=== PATIENT | female | born 1955 | race Caucasian/White ===

== ENCOUNTER 2024-11-25 14:27 | Outpatient (AMB) | payer MEDICARE, SELFPAY ==
--- NOTE | 2024-11-25 14:42 | A.OFFVIS_ITS ---
Vital Signs 11/25/24 14:44 Height 4 ft 11 in Weight 238 lb 1.588 oz BMI 48.1 BP 178/80 H Blood Pressure Location Lt brachial Position Sitting Pulse 50 Pulse Source Pulse Oximeter Pulse Oximetry (%) 99 Oxygen Delivery Method Room Air Intake Visit Reasons: copd Allergies No Known Allergies Allergy (Verified 11/25/24 14:47) HPI Comments Details: The patient is here for pulmonary evaluation. The patient is a 69 year woman who is here for evaluation of ongoing respiratory complaints. The patient states that she was in her usual state health until several years ago when she started developing worsening cough wheezing. She was evaluated by Pulmonary that time. Part of the workup including a CT scan of the chest. She had multiple CT scans demonstrating stable pulmonary nodules. We did personally review her last CT scan from 08/22/2020 4 which is done at [facility]. It actually demonstrated stable pulmonary nodules with the largest nodule irregular in appearance measuring 5 mm in size in the right upper lobe. In addition to that the patient had a dilated pulmonary trunk suggesting pulmonary hypertension and also a dilated ectatic ascending aorta. The patient does have daytime drowsiness he also has lower extremity edema. She was recommended to have a sleep study but she did not want to do that. Currently she is not using any inhalers. She has not any recent pulmonary function studies. On further examination the patient does have a systolic ejection murmur and a pronounced S2 suggesting the possibility of pulmonary hypertension. The patient also has significant lower extremity edema. Will plan to request an echocardiogram to assess for pulmonary hypertension. Also request an overnight oximetry to assess her oxygen levels at nighttime. Will have her get pulmonary function studies and her return for further evaluation. For now she is going to maintain a low- sodium diet. [facility] Medical History (Updated 11/25/24 @ 22:21 by Turner Banuelos MD) Dyspnea Ectatic aorta Murmur Pulmonary hypertension Pulmonary nodules Social History (Updated 11/25/24 @ 14:47 by Laura Georges CMA) Patient Tobacco Use Status: Former Tobacco user Review of Systems Const Reports daytime sleepiness and Reports fatigue ENT Reports no additional complaints Card Denies chest pain, Reports leg edema and Reports dyspnea on exertion Resp Reports dyspnea on exertion and Denies wheezing GI Reports no additional complaints Musc Reports no additional complaints Skin/Breast Denies rash Endo Reports fatigue Luis/Lymph Reports no additional complaints Aller/Immun Denies wheezing Physical Exam Vital Signs: Last Vital Signs Pulse 50 11/25/24 14:44 BP 178/80 H 11/25/24 14:44 Pulse Ox 99 11/25/24 14:44 Oxygen Delivery Method Room Air 11/25/24 14:44 BMI result Body Mass Index 48.1 Const General: comfortable HEENT Head: Yes normocephalic Neck Neck: Yes supple Chest Chest palpation & inspection: normal inspection of the chest Resp Effort & Inspection: normal respiratory effort Auscultation: diminished lung sounds Cardio Heart sounds: S1 normal heart sound present, S2 normal heart sound present, Murmur heart sound present systolic and Abnormal heart opening sounds loud S2 GI Palpation (GI): Soft to palpation Skin General skin exam: no rashes or lesions noted Extrem General: No clubbing, No cyanosis and Yes edema Results Reviewed Results Reviewed: personally reviewed CT chest 08/2024, RUL 5mm nodule, Pulm HTN, ectatic aorta Assessment & Plan Assessment & Plan (1) Pulmonary nodules: Code(s): R91.8 - Other nonspecific abnormal finding of lung field Category: Medical (2) Pulmonary hypertension: Code(s): I27.20 - Pulmonary hypertension, unspecified Category: Medical (3) Murmur: Code(s): R01.1 - Cardiac murmur, unspecified Category: Medical (4) Ectatic aorta: Code(s): I77.819 - Aortic ectasia, unspecified site Category: Medical (5) Dyspnea: Code(s): R06.00 - Dyspnea, unspecified Category: Medical Qualifiers: Dyspnea type: dyspnea on exertion Qualified Code(s): R06.09 - Other forms of dyspnea Plan PFTs Overnight oximetry on RA ECHO Low Na diet F/U 2 months Orders: Orders Overnight Pulse Oximetry Today I27.20 - Pulmonary hypertension, unspecified, R0 1.1 - Cardiac murmur, unspecified, R91.8 - Other nonspecific abnormal finding of lung field CA echo transthoracic complete Today I27.20 - Pulmonary hypertension, unspecified, R01.1 - Cardiac murmur, unspecified, R91.8 - Other nonspecific abnormal finding of lung field PFT pulmonary function test Today I27.20 - Pulmonary hypertension, unspecifi ed, R01.1 - Cardiac murmur, unspecified, R91.8 - Other nonspecific abnormal finding of lung field Coding Level of Care Code New Pt Level 5 (12380) Diagnoses Pulmonary nodules R91.8 Pulmonary hypertension I27.20 Murmur R01.1 Ectatic aorta I77.819 Dyspnea on exertion R06.09 Dyspnea type: dyspnea on exertion Time Spent (min) 60
[2024-11-25 14:44] VITALS: BP 178/80; PULSE 50; O2SAT 99; BMI 48.1
== END 2024-11-25 15:28 | disposition home or self-care (01) ==
PROVIDERS: PCP Nurse Practitioner; Visit Provider Hospitalist
DX: R91.8 Other nonspecific abnormal finding of lung field (principal); I27.20 Pulmonary hypertension, unspecified; R01.1 Cardiac murmur, unspecified; I77.819 Aortic ectasia, unspecified site; R06.09 Other forms of dyspnea
CPT/HCPCS: 99205

== ENCOUNTER → 2024-11-25 14:27 | Outpatient (BNVA) | payer MEDICARE, SELFPAY | PROVIDERS: PCP Nurse Practitioner; Visit Provider Hospitalist | DX: R91.8 Other nonspecific abnormal finding of lung field (principal); R01.1 Cardiac murmur, unspecified; R06.09 Other forms of dyspnea; I27.20 Pulmonary hypertension, unspecified; I77.819 Aortic ectasia, unspecified site | CPT/HCPCS: 99202 ==

== ENCOUNTER → 2025-03-08 12:15 | Outpatient (REF) | payer MEDICARE, SELFPAY ==
--- NOTE | 2025-03-08 12:19 | CA_ITS ---
Transthoracic Echocardiogram Patient (Last, First, Middle): Jess Fox, Gender: Female Date of : 1955 Age: 69 Procedure Date: 03/08/2025 Procedure Type: Transthoracic Echocardiogram Location: OP Height: 149.86 cm Weight: 102.51 kg BSA: 1.94 m2 Heart Rate: bpm BP: 136 / 70 mmHg Media Intern: THERON/ERIN Referring MD: Turner Banuelos MD Symptoms: I27.20 - Pulmonary hypertension, unspecified Study Quality: Fair, pt refused contrast ECG Rhythm: Sinus Conclusions: - The left ventricular systolic function is normal. The visually estimated ejection fraction is between 60-65%. - The left atrium is severely dilated. - No obvious valvular pathology seen on this study. - The right ventricular systolic pressure is 40 mmHg. Mild pulmonary hypertension is present. - There is mild dilatation of the ascending aorta measuring 4.00 cm. Findings Procedure Information The patient declines contrast. Left Ventricle Mildly increased left ventricular cavity size. There is normal left ventricular wall thickness. The left ventricular systolic function is normal. The visually estimated ejection fraction is between 60-65%. There is no evidence of regional wall motion abnormalities. Diastolic function is normal for age. Right Ventricle Mildly increased right ventricular cavity size. There is normal right ventricular systolic function. Atria The left atrium is severely dilated. The right atrium is normal in size. Aortic Valve There is a normal trileaflet aortic valve. There is no aortic valve stenosis. There is no aortic valve regurgitation. Mitral Valve The mitral valve appears normal. There is no mitral valve regurgitation. There is no mitral valve stenosis. Pulmonic Valve The pulmonic valve is likely normal. There is trace to mild pulmonic valve regurgitation. Tricuspid Valve There is mild tricuspid valve regurgitation. The right ventricular systolic pressure is 40 mmHg. Mild pulmonary hypertension is present. Great Vessels There is mild dilatation of the ascending aorta measuring 4.00 cm. Venous The inferior vena cava is normal in size and collapses greater than 50% with inspiration. Pericardium/Pleural There is no evidence of pericardial effusion. Prior Study Comparison No prior study available for comparison. Recommendations, Care & Conclusions No obvious valvular pathology seen on this study. Measurements 2D Linear Measurements IVSd: 0.86 0.6-0.9/0.6-1.0 cm LVIDd: 5.84 3.9-5.3/4.2-5.9 cm LVIDd Index: 3.01 2.4-3.2/2.2-3.1 cm/m2 LVIDs: 4.00 2.0-3.6 cm LVPWd: 0.84 0.7-1.1 cm LA Diam: 4.30 2.7-3.8/3.0-4.0 cm LAIDs Index: 2.22 1.5-2.3 cm/m2 LV Mass: 239.91 67-162/88-224 g LV Mass Index: 123.66 43-95/49-115 g/m2 LVOT Diam: 2.00 3.0+(-)1.3 cm Mitral Valve MV Pk E: 1.13 MV PK A: 0.95 MV Decel Time: 228.00 E/A: 1.20 E'Lateral: 9.79 E'Medial: 7.94 E/E' Med: 14.20 E/E' Lat: 11.50 PHT: 67.00 MVA PHT: 3.28 Decel Placer: 4.94 Aortic Valve AoV Pk Geovany: 1.86 AoV Mn Geovany: 1.22 AoV VTI: 0.50 AoV Pk Grad: 14.00 Aov Mn Grad: 7.00 CRIS Cont.VTI: 1.92 LVOT LVOT Pk Geovany: 1.09 LVOT Mn Geovany: 0.75 LVOT VTI: 0.31 LVOT Pk Grad: 5.00 LVOT Mn Grad: 3.00 LVOT Diam: 2.00 LVOT Area: 3.14 Diastolic Function MV Pk E: 1.13 MV Pk A: 0.95 E/A: 1.20 E'Medial: 7.94 E/E' Med: 14.20 E' Laterial: 9.79 E/E' Lat: 11.50 Right Ventricle TAPSE (mm): 30.90 TVS' Geovany: 16.20 Tricuspid Valve TR Pk Geovany: 3.03 TR Pk Grad: 37.00 RA Press: 3.00 RVSP: 40.00 Great Vessels Aorta Sinus of Valsalva: 3.21 2.0-3.5 cm Ao Asc: 4.00 2.1-3.4 cm Updated in Other Vendor System with Status of Final Eleno Chisholm MD electronically signed on 03/10/2025 12:19:05 PM with status of Final
--- OUTSIDE RECORDS SUMMARY | 2025-03-08 13:40 | XMS_ITS | Clinical Summary ---
Author Organization [address] [place] [address] Address [address] [place] [address] Phone Care Team Providers Care Cotton Ginner Helper Name Role Phone Vito Alejandro MD Primary Care Provider Allergies No known active allergies Medications buspirone HCl (BUSPIRONE ORAL) Take 40 tablets by mouth. Active OMEPRAZOLE MAGNESIUM ORAL Take by mouth. Active celecoxib (CeleBREX) 200 mg capsule Take 200 mg by mouth 2 times daily. Active citalopram (CeleXA) 40 mg tablet Take 40 mg by mouth daily. Active cyclobenzaprine (FLEXERIL) 10 mg tablet Take 10 mg by mouth 3 times daily as needed. Active gabapentin (NEURONTIN) 250 mg/5 mL solution Take by mouth. Active levothyroxine (SYNTHROID, LEVOTHROID) 112 mcg tablet Take 112 mcg by mouth daily. Active lisinopriL (PRINIVIL,ZESTR IL) 20 mg tablet Take 20 mg by mouth daily. Active meclizine (ANTIVERT) 25 mg tablet Take by mouth. Active metFORMIN XR (GLUCOPHAGE-XR) 500 mg 24 hr tablet Take 500 mg by mouth daily (with breakfast). Active simvastatin (ZOCOR) 40 mg tablet Take 1 tablet (40 mg total) by mouth at bedtime. Active SITagliptin phosphate (Januvia) 100 mg tablet Take 100 mg by mouth daily. Active SUMAtriptan (IMITREX) 100 mg tablet Take 150 mg by mouth daily as needed. May repeat dose once after 2 hours, if needed. Active topiramate 100 mg capsule,extende d release 24hr Take by mouth. Active Active Problems Problem Noted Date Diagnosed Date Multiple lipomas 07/07/2018 Social History Tobacco Use Types Packs/Day Years Used Date Smoking Tobacco: Never Assessed Comments Unknown Sex and Gender Information Value Date Recorded Sex Assigned at Not on file Legal Sex Female 8:36 PM EST Gender Identity Not on file Sexual Orientation Not on file Plan of Treatment Health Maintenance Due Date Last Done Comments DTaP,Tdap,and Td Vaccines (1 - Tdap) 1972 Pneumococcal Vaccine: 50+ Years (1 of 1 - PCV) 2003 Zoster Vaccines (1 of 2) 2003 Colorectal Cancer Screening: Colonoscopy 10/05/2022 Depression Screening 10/05/2022 Falls Risk Assessment 10/05/2022 Hepatitis C Screening 10/05/2022 Social Influencers of Health Screening 10/05/2022 COVID-19 Vaccine ( - 2023-2 5 season) 2024 Influenza Vaccine (Season Ended) 2025 Breast Cancer Screening 08/12/2026 08/12/20 24, 04/23/2023 RSV Immunization Adult Patients (1 - 1-dose 75+ series) 2028 Osteoporosis Screening (Bone Density Screening) 04/22/2033 04/22/2023 HIB Vaccines Aged Out No longer eligi ble based on patient's age to complete this topic HPV Vaccines Aged Out No longer eligi ble based on patient's age to complete this topic Hepatitis A Vaccines Aged Out No long er eligible based on patient's age to complete this topic Hepatitis B Vaccines Aged Out No long er eligible based on patient's age to complete this topic IPV Vaccines Aged Out No longer eligi ble based on patient's age to complete this topic MMR Vaccines Aged Out No longer eligi ble based on patient's age to complete this topic Meningococcal ACWY Vaccine Aged Out N o longer eligible based on patient's age to complete this topic Meningococcal B Vaccine Aged Out No l onger eligible based on patient's age to complete this topic RSV Immunization Patients Under 20 months Aged Out No longer eligible b ased on patient's age to complete this topic Varicella Vaccines Aged Out No longer eligible based on patient's age to complete this topic Procedures Procedure Name Priority Date/Time Associated Diagnosis Comments [facility] SCREENING DIGITAL Routine 08/12/2024 12:58 PM EDT Encounter for screening mammogram for malignant neoplasm of breast [facility] DEXA AXIAL SKELETON Routine 04/22/2023 7:47 AM EDT Encounter for screening for osteoporosis from Last 3 Months or Most Recently Relevant to Health Maintenance Results * [facility] SCREENING DIGITAL (08/12/2024 12:58 PM EDT) Anatomical Region Laterality Modality Mammography 08/11/2024 1:39 PM EDT Narrative 08/12/2024 12:58 PM EDT [facility] Diagnostic Imaging Department [address] [place] [address] Patient: ??JESS AGUILLON ?/Age/Sex: 1955 - 69 - F Unit#: ??[id number] ? Location/Status: ??SPDIMAM/REG CLI ? Mnemonic/Ordering Site: ??DIGSC/SPMAM Ordering Physician: ??VENTURA MCCOY NP [facility] Screening Digital - 08/11/24 - 1441 Report Status:Signed EXAM: [facility] Screening Digital EXAM DATE AND TIME: 08/11/2024 2:41 PM HISTORY: ??Screening. COMPARISON: ??04/30/23, 04/21/23, 06/29/15, 12/31/12 TECHNIQUE: Bilateral digital breast tomosynthesis was performed in the CC and MLO projections. Computer aided detection with Spiracur 3D 3.1 was employed. TISSUE DENSITY: b. There are scattered areas of fibroglandular density. FINDINGS: No suspicious masses, grouped microcalcifications, or areas of architectural distortion are seen. Benign rim and secretory calcifications are again noted. The skin and vascularity are unremarkable. IMPRESSION: Stable mammographic appearance of the breasts. ??No evidence of malignancy is seen. A negative mammogram in the presence of a clinically suspicious palpable abnormality does not preclude the possibility of malignancy or alter the indications for biopsy. BI-RADS: ??Category 2: Benign RECOMMENDATION(S): 1: Routine screening mammogram BILATERAL in 1 year. Mammogram performed at [facility] [place] [address] Dictating Physician: ??GENEVIEVE SMITH MD Electronically Signed by: ??GENEVIEVE SMITH MD Dic Date/Time: ??08/12/24 1257 Sign date/Time: ??08/12/24 1258 Procedure Note Genevieve Smith MD - 08/31/2024 [facility] Diagnostic Imaging Department [address] [place] [address] Patient: JESS AGUILLON Jovanny IsraelB./Age/Sex: 1955 - 69 - F Unit#: [id number] Location/Status: [facility] Mnemonic/Ordering Site: [facility] Ordering Physician: VENTURA MCCOY NP [facility] Screening Digital - 08/11/24 - 1441 Report Status:Signed EXAM: [facility] Screening Digital EXAM DATE AND TIME: 08/11/2024 2:41 PM HISTORY: Screening. COMPARISON: 04/30/23, 04/21/23, 06/29/15, 12/31/12 TECHNIQUE: Bilateral digital breast tomosynthesis was performed in the CCand MLO projections. Computer aided detection with Spiracur 3D 3.1was employed. TISSUE DENSITY: b. There are scattered areas of fibroglandular density. FINDINGS: No suspicious masses, grouped microcalcifications, or areas ofarchitectural distortion are seen. Benign rim and secretory calcifications are againnoted. The skin and vascularity are unremarkable. IMPRESSION: Stable mammographic appearance of the breasts. No evidence of malignancyis seen. A negative mammogram in the presence of a clinically suspicious palpable abnormality does not preclude the possibility of malignancy or alter the indications for biopsy. BI-RADS: Category 2: Benign RECOMMENDATION(S): 1: Routine screening mammogram BILATERAL in 1 year. [facility] at [facility] [address] [address] Dictating Physician: GENEVIEVE SMITH MD Electronically Signed by: GENEVIEVE SMITH MD Dic Date/Time: 08/12/24 1257 Sign date/Time: 08/12/24 1258 us Ventura Mccoy NP IMG BI PROCEDURES Final Result * [facility] DEXA AXIAL SKELETON (04/22/2023 7:47 AM EDT) Anatomical Region Laterality Modality Mammography 04/21/2023 12:5 0 PM EDT Narrative 04/22/2023 7:47 AM EDT [facility] Diagnostic Imaging Department [address] [place] [address] Patient: ??JESS AGUILLON ?/Age/Sex: 1955 - 68 - F Unit#: ??[id number] ? Location/Status: ??SPDIMAM/REG CLI ? Mnemonic/Ordering Site: ??MAMDEXAAX/SPMAM Ordering Physician: ??BRINA RODRIGUEZ PLASTIC FINISHER [facility] Dexa Axial Skeleton - 04/21/23 - 1327 Report Status:Signed HISTORY: ??The patient is a 68-year-old postmenopausal female with clinical concern for metabolic bone disease. FINDINGS: ??Dual energy x-ray absorptiometry of the lumbar spine and femurs is performed. The mean bone mineral density at L2-3 is 1.042 gm/cm2 which is 87% of that of young normals and 91% of that of age matched controls. This yields a T- score of -1.3 and a Z-score of -0.8 which is diagnostic of osteopenia. The mean bone mineral density of the femurs bilaterally is 0.835 gm/cm2 which is 83% of that of young normals and 90% of that of age matched controls. ??This yields a T-score of -1.4 and a Z-score of -0.7 which is diagnostic of osteopenia. ??The T-score of the right femoral neck is -1.7 and that of the left femoral neck is -2.1 which is diagnostic of osteopenia. IMPRESSION: 1. Osteopenia. ??There has been an increase of 5.4% in bone mineral density in the lumbar spine since the prior examination of 06/29/2015. ??There has been a decrease of 12.7% in bone mineral density in the right femur and a decrease of 13.2% in bone mineral density in the left femur. 2. FRAX analysis yields a 10-year probability of major osteoporotic fracture of 14.0% and a 10-year probability of hip fracture of 2.0%. Code 94256 Dictating Physician: ??ANNALISA RIVERA MD Electronically Signed by: ??ANNALISA RIVERA MD Dic Date/Time: ??04/22/23 0746 Sign date/Time: ??04/22/2347 Procedure Note Annalisa Rivera MD - 12/09/2023 [facility] Diagnostic Imaging Department [address] [place] [address] Patient: JESS AGUILLON D.O.B./Age/Sex: 1955 - 68 - F Unit#: [id number] Location/Status: [facility] CLI [facility] Ordering Physician: BRINA RODRIGUEZ NP [facility] Dexa Axial Skeleton - 04/21/23 - 1327 Report Status:Signed HISTORY: The patient is a 68-year-old postmenopausal female withclinical concern for metabolic bone disease. FINDINGS: Dual energy x-ray absorptiometry of the lumbar spine and femursis performed. The mean bone mineral density at L2-3 is 1.042 gm/cm2 which is87% of that of young normals and 91% of that of age matched controls. This yieldsa T- score of -1.3 and a Z-score of -0.8 which is diagnostic of osteopenia. The mean bone mineral density of the femurs bilaterally is 0.835 gm/rm4wnyxp is 83% of that of young normals and 90% of that of age matched controls.This yields a T-score of -1.4 and a Z-score of -0.7 which is diagnostic of osteopenia. The T-score of the right femoral neck is -1.7 and that of theleft femoral neck is -2.1 which is diagnostic of osteopenia. IMPRESSION: 1. Osteopenia. There has been an increase of 5.4% in bone mineral densityin the lumbar spine since the prior examination of 06/29/2015. There has taniya decrease of 12.7% in bone mineral density in the right femur and adecrease of 13.2% in bone mineral density in the left femur. 2. FRAX analysis yields a 10-year probability of major osteoporoticfracture of 14.0% and a 10-year probability of hip fracture of 2.0%. Code 38354 Dictating Physician: ANNALISA RIVERA MD Electronically Signed by: ANNALISA RIVERA MD Dic Date/Time: 04/22/23 0746 Sign date/Time: 04/22/2347 Brina Price PLASTIC FINISHER IMG BI PROCEDURES Final Result from Last 3 Months or Most Recently Relevant to Health Maintenance Insurance [employer] [employer] [address] [place] [address] Care Teams Cotton Ginner Helper Relationship Specialty Start Date End Date Vito Alejandro MD [address] [place], [place] PCP - General Internal Medicine 06/08/18
--- NOTE | 2025-03-08 14:11 | PFT_ITS ---
Indication: Pulmonary nodule Spirometry [FEV1 to FVC 86%; FEV1 2.4 L; FVC 2.79 L. no significant response to bronchodilators noted.] Lung Volumes [Total lung capacity 108% predicted; expiratory reserve volume 42% predicted] Diffusion Capacity [DLCO 116% predicted] Comparisons [None] Interpretation [No obstructive nor restrictive ventilatory defects identified. No significant response to bronchodilators noted. Lung volumes are normal except for decrease in the expiratory reserve volume secondary to an elevated BMI. Diffusion capacity is within normal limits. Clinical correlation warranted.] MTDD
== END ==
LOC: HO.CARD 12:15
PROVIDERS: PCP Nurse Practitioner; Visit Provider Hospitalist
DX: I27.20 Pulmonary hypertension, unspecified (principal); R01.1 Cardiac murmur, unspecified; R91.1 Solitary pulmonary nodule
CPT/HCPCS: 93306

== ENCOUNTER → 2025-03-08 12:19 | Outpatient (BNV) | payer MEDICARE, SELFPAY | PROVIDERS: PCP Nurse Practitioner; Visit Provider Internal Medicine | DX: I27.20 Pulmonary hypertension, unspecified (principal); I37.1 Nonrheumatic pulmonary valve insufficiency; I36.1 Nonrheumatic tricuspid (valve) insufficiency; I51.7 Cardiomegaly | CPT/HCPCS: 93306 ==

== ENCOUNTER → 2025-03-08 14:11 | Outpatient (BNV) | payer MEDICARE, SELFPAY | PROVIDERS: PCP Nurse Practitioner; Visit Provider Hospitalist | DX: R91.1 Solitary pulmonary nodule (principal) | CPT/HCPCS: 94060; 94727; 94729 ==

== ENCOUNTER 2025-04-01 14:41 | Outpatient (AMB) | payer MEDICARE, SELFPAY ==
--- OUTSIDE RECORDS SUMMARY | 2025-04-01 14:44 | XMS_ITS | Clinical Summary ---
Author Organization [address] [place] [address] Address [address] [place] [address] Phone Care Team Providers Care Weight Inspector Name Role Phone Vito Alejandro MD Primary [...] Procedure Name Priority Date/Time Associated Diagnosis Comments [facility] SCREENING DIGITAL Routine 08/12/2024 12:58 PM EDT Encounter for screening mammogram for malignant neoplasm of breast [facility] DEXA AXIAL SKELETON Routine 04/22/2023 7:47 AM EDT Encounter for screening for osteoporosis from Last 3 Months or Most Recently Relevant to Health Maintenance Results * [facility] SCRE[facility]IG[facility] (08/12/2024 12:58 PM EDT) Anatomical Region Laterality Modality Mammography 08/11/2024 1:39 PM EDT Narrative 08/12/2024 12:[address] [facility] Diagnostic Imaging Department [address] [place] [address] Patient: ??JESS AGUILLON ?/Age/Sex: 1955 - 69 - F Unit#: ??[id number] ? Location/Status: ??SPDIMAM/REG CLI ? Mnemonic/Ordering Site: ??DIGSC/SPMAM Ordering Physician: ??VENTURA MCCOY NP [facility] Screening Digital - 08/11/24 - 1441 Report Status:Signed EXAM: [facility] Screening Digital EXAM DATE AND TIME: 08/11/2024 2:41 PM HISTORY: ??Screening. COMPARISON: ??04/30/23, 04/21/23, 06/29/15, 12/31/12 TECHNIQUE: Bilateral digital breast tomosynthesis was performed in the CC and MLO projections. Computer aided detection with Whirlpool 3D 3.1 was employed. TISSUE DENSITY: b. [...] Mammogram performed at [facility] [place] [address] Dictating Physician: ??GENEVIEVE SMITH MD Electronically Signed by: ??GENEVIEVE SMITH MD Dic Date/Time: ??08/12/24 1257 Sign date/Time: ??08/12/24 1258 Procedure Note Genevieve Smith MD - 08/31/2024 [facility] Diagnostic Imaging Department [address] [place] [address] Patient: JESS AGUILLON Jovanny IsrealB./Age/Sex: 1955 - 69 - F Unit#: [id number] Location/Status: [facility] Mnemonic/Ordering Site: [facility] Ordering Physician: VENTURA MCCOY NP [facility] Screening Digital - 08/11/24 - 1441 Report Status:Signed EXAM: [facility] Screening Digital EXAM DATE AND TIME: 08/11/2024 2:41 PM HISTORY: Screening. COMPARISON: 04/30/23, 04/21/23, 06/29/15, 12/31/12 TECHNIQUE: Bilateral digital breast tomosynthesis was performed in the CCand MLO projections. Computer aided detection with Whirlpool 3D 3.1was employed. TISSUE DENSITY: b. There [...] Mammogram performed at [facility] [address], [place] [address] Dictating Physician: GENEVIEVE SMITH MD Electronically Signed by: GENEVIEVE SMITH MD Dic Date/Time: 08/12/24 1257 Sign date/Time: 08/12/24 1258 us Ventura Mccoy NP IMG BI PROCEDURES Final Result * [facility] DEXA AXIAL SKELETON (04/22/2023 7:47 AM EDT) Anatomical Region Laterality Modality Mammography 04/21/2023 12:5 0 PM EDT Narrative 04/22/2023 7:[address] [facility] Diagnostic Imaging Department [address] [place] [address] Patient: ??JESS AGUILLON ?/Age/Sex: 1955 - 68 - F Unit#: ??[id number] ? Location/Status: ??SPDIMAM/REG CLI ? Mnemonic/Ordering Site: ??MAMDEXAAX/SPMAM Ordering Physician: ??BRINA RODRIGUEZ MUNICIPAL ENGINEER [facility] Dexa Axial Skeleton - 04/21/23 - [...] probability of hip fracture of 2.0%. Code 69118 Dictating Physician: ??ANNALISA RIVERA MD Electronically Signed by: ??ANNALISA RIVERA MD Dic Date/Time: ??04/22/23 0746 Sign date/Time: ??04/22/2347 Procedure Note Annalisa Rivera MD - 12/09/2023 [facility] Diagnostic Imaging Department [address] [place] [address] Patient: JESS AGUILLON D.O.B./Age/Sex: 1955 - 68 - F Unit#: [id number] Location/Status: [facility] CLI [facility] Ordering Physician: BRINA RODRIGUEZ NP [facility] Dexa Axial Skeleton - 04/21/23 [...] density of the femurs bilaterally is 0.835 gm/et8uvchw is 83% of that of young normals [...] probability of hip fracture of 2.0%. Code 01948 Dictating Physician: ANNALISA RIVERA MD Electronically Signed by: ANNALISA RIVERA MD Dic Date/Time: 04/22/23 0746 Sign date/Time: 04/22/2347 Brina Price MUNICIPAL ENGINEER IMG BI PROCEDURES Final Result from Last 3 Months or Most Recently Relevant to Health Maintenance Insurance [employer] [address] [place] [address] Care Teams Weight Inspector Relationship Specialty Start Date End Date Vito Alejandro MD [address] [place], [place] PCP - General Internal Medicine 06/08/18
[2025-04-01 14:47] VITALS: BP 160/60; PULSE 56; O2SAT 96; BMI 46.5
--- NOTE | 2025-04-01 14:47 | A.OFFVIS_ITS ---
Vital Signs 04/01/25 14:47 Height 4 ft 11 in Weight 230 lb 6.129 oz BMI 46.5 BP 160/60 H Blood Pressure Location Lt brachial Position Sitting Pulse 56 Pulse Source Pulse Oximeter Pulse Oximetry (%) 96 Oxygen Delivery Method Room Air Intake Visit Reasons: Dyspnea Steward/Stewardess Second Class Required: No Accompanied by: Self / Same As Patient Allergies No Known Allergies Allergy (Verified 04/01/25 14:50) HPI Comments Details: The patient is a 69 year woman who is here for evaluation of ongoing respiratory complaints. The patient states that she was in her usual state health until several years ago when she started developing worsening cough wheezing. She was evaluated by Pulmonary that time. Part of the workup including a CT scan of the chest. She had multiple CT scans demonstrating stable pulmonary nodules. We did personally review her last CT scan from 08/22/2020 4 which is done at [facility]. It actually demonstrated stable pulmonary nodules with the largest nodule irregular in appearance measuring 5 mm in size in the right upper lobe. In addition to that the patient had a dilated pulmonary trunk suggesting pulmonary hypertension and also a dilated ectatic ascending aorta. The patient does have daytime drowsiness he also has lower extremity edema. She was recom mended to have a sleep study but she did not want to do that. Currently she is not using any inhalers. She has not any recent pulmonary function studies. On further examination the patient does have a systolic ejection murmur and a pronounced S2 suggesting the possibility of pulmonary hypertension. The patient also has significant lower extremity edema. Will plan to request an echocardiogram to assess for pulmonary hypertension. Also request an overnight oximetry to assess her oxygen levels at nighttime. Will have her get pulmonary function studies and her return for further evaluation. For now she is going to maintain a low-sodium diet. 04/01/2025 the patient is here for pulmonary follow-up visit. Overall she is doing okay from a respiratory status. Although she is very stressed. She needs to make decisions that are affecting her overall health. She is very stressed. She did undergo the echocardiogram demonstrating mild pulmonary hypertension going along with the diagnosis of pulmonary hypertension noted on the CAT scan. The patient did also have pulmonary function studies demonstrating normal lung capacity normal diffusing capacity which is very reassuring. She was supposed to have an overnight oximetry but she is not have it done. Now she would like to hold off specially with the level stress and trying to figure out which is going to do with her move. For now will let her be off of the next 6 months and then we can reassess. If she changes her mind she can always call. I do believe that she needs to have a sleep study but the patient rather not specia lly since she does not feel like she is going to uses CPAP mask. For now the patient is doing okay so therefore which is going to hold off on any interventions until she is able to do so and will decide that in 6 months. If she is ready to have testing done prior to that she can just call and we can address that earlier. [facility] Medical History (Updated 11/25/24 @ 22:21 by Turner Banuelos MD) Dyspnea Ectatic aorta Murmur Pulmonary hypertension Pulmonary nodules Social History Patient Tobacco Use Status: Former Tobacco user Review of Systems Const Reports daytime sleepiness and Reports fatigue ENT Reports no additional complaints Card Denies chest pain, Reports leg edema and Reports dyspnea on exertion Resp Reports dyspnea on exertion and Denies wheezing GI Reports no additional complaints Musc Reports no additional complaints Skin/Breast Denies rash Endo Reports fatigue Luis/Lymph Reports no additional complaints Aller/Immun Denies wheezing Physical Exam Vital Signs: Last Vital Signs Pulse 56 04/01/25 14:47 BP 160/60 H 04/01/25 14:47 Pulse Ox 96 04/01/25 14:47 Oxygen Delivery Method Room Air 04/01/25 14:47 BMI result Body Mass Index 46.5 Const General: comfortable HEENT Head: Yes normocephalic Neck Neck: Yes supple Chest Chest palpation & inspection: normal inspection of the chest Resp Effort & Inspection: normal respiratory effort Auscultation: diminished lung sounds Cardio Heart sounds: S1 normal heart sound present, S2 normal heart sound present, Murmur heart sound present systolic and Abnormal heart opening sounds loud S2 GI Palpation (GI): Soft to palpation Skin General skin exam: no rashes or lesions noted Extrem General: No clubbing, No cyanosis and Yes edema Assessment & Plan Assessment & Plan (1) Pulmonary nodules: Code(s): R91.8 - Other nonspecific abnormal finding of lung field Category: Medical (2) Pulmonary hypertension: Code(s): I27.20 - Pulmonary hypertension, unspecified Category: Medical (3) Murmur: Code(s): R01.1 - Cardiac murmur, unspecified Category: Medical (4) Ectatic aorta: Code(s): I77.819 - Aortic ectasia, unspecified site Category: Medical (5) Dyspnea: Code(s): R06.00 - Dyspnea, unspecified Category: Medical Qualifiers: Dyspnea type: dyspnea on exertion Qualified Code(s): R06.09 - Other forms of dyspnea Plan PFTs are normal Overnight oximetry on RA, pt would like to wait ECHO-mild Pulm HTN Low Na diet F/U 4-6 months Coding Level of Care Code Est Pt Level 4 (46450) Complex EM visit Add On G2211 Diagnoses Pulmonary nodules R91.8 Pulmonary hypertension I27.20 Murmur R01.1 Ectatic aorta I77.819 Dyspnea on exertion R06.09 Dyspnea type: dyspnea on exertion Time Spent (min) 16
== END 2025-04-01 15:16 | disposition home or self-care (01) ==
LOC: HO.HPS 14:41
PROVIDERS: PCP Nurse Practitioner; Visit Provider Hospitalist
DX: R91.8 Other nonspecific abnormal finding of lung field (principal); I27.20 Pulmonary hypertension, unspecified; R01.1 Cardiac murmur, unspecified; I77.819 Aortic ectasia, unspecified site; R06.09 Other forms of dyspnea
CPT/HCPCS: 99214; G2211

== ENCOUNTER → 2025-04-01 14:41 | Outpatient (BNVA) | payer MEDICARE, SELFPAY | PROVIDERS: PCP Nurse Practitioner; Visit Provider Hospitalist | DX: R91.8 Other nonspecific abnormal finding of lung field (principal); R06.09 Other forms of dyspnea; R01.1 Cardiac murmur, unspecified; I27.20 Pulmonary hypertension, unspecified; I77.819 Aortic ectasia, unspecified site | CPT/HCPCS: 99212 ==